=== PATIENT | male | born 1975 | race Caucasian/White ===

== ENCOUNTER 2025-05-28 14:18 | Emergency (ER) | payer OTHER ==
[2025-05-28] MEDS ORDERED: Acetaminophen 500 MG TAB ONE (14:53)
[2025-05-28 14:55] LABS: #Basophils 0.06 10x3/uL (0.0-0.2); #Eosinophils 0.43 10x3/uL (0.0-0.5); #Monocytes 0.80 10x3/uL (0.0-1.1); #Neutrophils 6.17 10x3/uL (1.5-8.4); %Basophils 0.6 % (0.0-2.0); %Eosinophils 4.4 % (0.0-6.0); %Lymphocytes 23.9 % (18.0-47.0); %Monocytes 8.1 % (0.0-10.0); %Neutrophils 62.6 % (40.0-75.0); Hematocrit 40.6 % (38.8-50.0); Hemoglobin 14.2 g/dL (13.5-17.5); Mean Corpuscular Hemoglobin 29.3 pg (27.0-33.0); Mean Corpuscular Volume 83.7 fL (81.2-95.1); Platelet Count 249 10x3/uL (150-450); Red Blood Cell (RBC) Count 4.85 10x6/uL (4.32-5.72); White Blood Cell (WBC) Count 9.85 10x3/uL (3.5-10.5)
[2025-05-28 15:07] LABS: ALT (SGPT) 32 U/L (Less than 45); AST (SGOT) 36 U/L (11-34); Albumin 4.0 g/dL (3.1-4.5); Alkaline Phosphatase 48 U/L (40-110); Anion Gap 10 mmol/L (10-20); BUN (Urea Nitrogen) 17 mg/dL (8.9-20.6); Bilirubin, Total 0.8 mg/dL (0.3-1.2); Calc. Creatinine Clearance 0 mL/min (70-130); Calcium 9.0 mg/dL (7.8-10.44); Carbon Dioxide 24 mmol/L (22-29); Chloride 108 mmol/L (98-107); Globulin 2.3 g/dL (2.4-3.5); Glucose 76 mg/dL (70-105); Potassium 3.8 mmol/L (3.5-5.1); Sodium 138 mmol/L (136-145)
[2025-05-28 15:11] LABS: Troponin I Less than 0.010 ng/mL (< 0.028)
[2025-05-28 17:21] LABS: Troponin I Less than 0.010 ng/mL (< 0.028)
== END 2025-05-28 17:36 | disposition home or self-care (01) ==
LOC: CSHERS 14:18
DX: R07.9 Chest pain, unspecified (principal); I10 Essential (primary) hypertension; R29.700 NIHSS score 0; F17.220 Nicotine dependence, chewing tobacco, uncomplicated; F17.290 Nicotine dependence, other tobacco product, uncomplicated; Z79.899 Other long term (current) drug therapy
CPT/HCPCS: 36415; 71045; 80053; 84484; 85025; 93005